=== PATIENT | female | born 2000 | race Caucasian/White ===

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

== ENCOUNTER 2021-03-08 15:08 | Emergency (ER) | payer OTHER, SELFPAY ==
[2021-03-08 15:09] VITALS: BP 102/64; PULSE 120; RESP 14; TEMP 37.8; O2SAT 100; BMI 31.2
--- NOTE | 2021-03-08 16:16 | EDS_ITS ---
HPI History of Present Illness Chief Complaint: Back Informant: patient Onset/Context/Timing Onset: Days Context: Gradual Onset Timing: Intermittent Current Severity: Mild Maximum Severity: Mild Narrative Narrative: 21-year-old female history of polycystic ovarian syndrome. No prior surgeries. Patient states that she went to an urgent care they were sent in the emergency department. States that she has had [id number] sensation in both lower extremities but no weakness or numbness. No bowel or bladder inco ntinence. Also states that she has had fever of 102 this morning and lower back pain. She denies dysuria but states she has had urinary frequency. She denies any cough or shortness of breath. She denies any abdominal pain, nausea, vomiting or diarrhea. Prior similar symptoms: No Recent Illness/Hospitalization: No PFSH PFS Medical History (Updated 03/08/21 @ 18:[address] Amarjit Cid MD) PCOS (polycystic ovarian syndrome) Home Medications cephalexin 500 mg PO Q6H 10 Days #40 cap 03/08/21 [Rx Last Taken Unknown] Allergy/AdvReac Type Severity Reaction Status Date / Time peanut Allergy Anaphylaxis Verified 03/08/21 15:13 Family History Father Cancer multiple myeloma Grandmother Breast cancer Grandfather Myocardial infarction Social History Smoking Status: Never smoker alcohol intake: never substance use type: does not use caffeine: Yes frequency: 5-6 times per week seatbelt use: always additional social history: [facility] at [facility] ROS ROS ED ROS Narrative Denies recent illness except for the fever today. Review of Systems ROS Unobtainable: Denies due to encephalopathy Constitutional Constitutional ED: Reports fever(s) Eyes Eyes: Denies change in vision ENT ENT ED: Denies ear pain or sore throat Cardiovascular Cardiovascular: Denies chest pain Respiratory/Chest Respiratory/Chest: Denies cough or dyspnea Gastrointestinal Gastrointestinal: Denies abdominal pain, diarrhea, nausea or vomiting Genitourinary Genitourinary ED: Reports urinary frequency; Denies dysuria or hematuria Musculoskeletal Musculoskeletal: Denies myalgias Integumentary Denies rash Neurologic Neurologic: Denies headache(s) Psychiatric Psychiatric: Denies depression Endocrine Endocrinology: Denies polyuria Allergic/Immunologic Allergic/Immunologic ED: Denies urticaria EXAM Physical Exam Narrative Exam Narrative: Young healthy female no acute distress. Vital signs stable she does have a temperature of 100. She does not look septic or toxic. HEENT exam normal. Lungs are clear. Heart regular rhythm with a tachycardia with a rate about 110 no murmur.. Abdomen soft nontender normal bowel sounds no peritoneal signs. Extremities moves all 4. Neurovascular intact 5-5 ladle liner helper strength. Dorsi plantar flexion intact equal symmetrical good strength in both lower extremities. No cauda equina. No saddle anesthesia. Can lift either leg without any difficulty. Back completely nontender spine nontender. No redness or warmth. No signs of trauma. Neurologic exam normal. Normal motor strength and sensation bilaterally. Const Vital Signs: 03/08/21 15:09 Temperature 100.0 F H Temperature Source Oral Pulse Rate 120 H Respiratory Rate 14 Blood Pressure 102/64 Blood Pressure Mean 76 Pulse Ox 100 Oxygen Delivery Method Room Air Positive well nourished and well developed General Appearance ED: well developed HEENT Reports moist mucous membranes Negative for trauma or tenderness Eyes PERRL and EOMs intact bilaterally Neck no lymphadenopathy, supple and no JVD General: Negative for tenderness Chest Wall inspection of chest normal and palpation of chest normal Resp normal respiratory effort and clear to auscultation bilaterally Cardio regular rhythm and no murmurs Rate: tachycardic GI normal to inspection, nondistended, normoactive bowel sounds, non-tender and no masses Inspection: Negative for abdominal distention Auscultation: normoactive bowel sounds Palpation: soft; Negative for tender, guarding or rebound tenderness present Back/Spine no CVA tenderness General Back: Negative for CVA tenderness Cervical Spine: Negative for cervical spine tenderness Thoracic Spine / Upper Back: Negative for thoracic spinal tenderness or paraspinal muscle tenderness Lumbar Spine / Lower Back: Negative for lumbar spinal tenderness Extremity normal to inspection General Extremety ED: Negative for edema or tenderness General Extremity: Negative for edema Neuro oriented x3 and CN's II-XII intact bilaterally Sensorium / Orientation: alert; Negative for orientation impaired, lethargic or stuporous Sensory Exam: No sensory level loss detected Motor Exam: strength 5/5 throughout; Negative for general weakness or strength abnormal Psych mental status grossly normal Skin no rashes or lesions noted and no wounds MDM MDM MDM Narrative Medical decision making narrative: Young female normal exam other than mild tachycardia and low-grade temperature of 100. Consider UTI versus viral syndrome versus atypical presentation of pneumonia. She has good motor strength and sensation and range of motion to all extremities. She will be treated with IV fluids and p.o. Tylenol. Labs are being obtained along with x-ray. Repeat exam patient is doing well at 6 PM. She is feeling much better. She was given 1 oral Keflex. And Tylenol. She and I discussed her lab test. I suspect she has pyelonephritis. Urine culture was sent. She is comfortable being treated as an outpatient. She does return if feeling worse. Lab Data Attestation: I reviewed the patient's lab results. Lab results narrative: CBC showed an elevated white count 23,000. Hemoglobin 13. Electrolytes sodium 132. Gap at 9 creatinine of 1. Glucose 94. Urine is consistent with a UTI with positive nitrites 25-50 white cells 1+ bacteria. A culture will be sent. Chest x-ray shows no acute abnormality. Normal cardiac silhouette no pneumonia. Read both by myself and the radiologist. Labs: Laboratory Results - last 24 hr 03/08/21 03/08/21 03/08/21 16:27 16:30 16:30 WBC 23.3 H RBC 4.06 L Hgb 13.1 Hct 40.0 MCV 98.5 MCH 32.3 H MCHC 32.8 RDW Std Deviation 47.0 H RDW Coeff of Candi 13.1 Plt Count 334 MPV 8.7 Immature Gran % (Auto) 0.600 Neut % (Auto) 77.9 H Lymph % (Auto) 9.4 L [place] % (Auto) 10.0 Eos % (Auto) 1.8 Baso % (Auto) 0.3 Absolute Neuts (auto) 18.5 H Absolute Lymphs (auto) 2.23 Nucleated RBC % 0 Differential Comment SCANNED Diff Path Review May foll Platelet Estimate ADEQUATE RBC Morphology NORM C+C Sodium 132 L Potassium 3.8 Chloride 99 Carbon Dioxide 24.0 Anion Gap 9 BUN 8 Creatinine 1.02 Estim Creat Clear Calc 91.18 Est GFR (MDRD) Af Amer 88 Est GFR (MDRD) Non-Af 73 BUN/Creatinine Ratio 7.8 L Glucose 94 Calcium 8.8 Urine Color Yellow Urine Clarity Clear Urine pH 7.0 Ur Specific [place] 1.005 Urine Protein 30 H Urine Glucose (UA) Normal Urine Ketones 50 H Urine Occult Blood 25 H Urine Nitrite Positive H Urine Bilirubin Negative Urine Urobilinogen Normal Ur Leukocyte Esterase 500 H Urine RBC 0-5 SEEN Urine WBC 25-50 SEEN Ur Squamous Epith Cells 0-5 SEEN Urine Bacteria 1+ Urine Mucus 0 SEEN Radiography Diagnostic Testing: Radiology Impression Chest X-Ray 03/08/21 16:40 IMPRESSION: Normal x-ray examination of the chest. Electronically Signed: Lola Singleton MD at 17:23 EDT Tel , Service support , Discharge Plan Triage Chief Complaint: Back ED Provider: Amarjit Cid Dx/Rx/DC Orders Clinical Impression: Acute pyelonephritis Instructions: ED Pyelonephritis, Female (Adult) Prescriptions: New cephalexin 500 mg capsule 500 mg PO Q6H 10 Days Qty: 40 RF: 0 Primary Care Provider: Jennifer Paul Referrals: Jennifer Paul MD [Primary Care Provider] - 3-5 Days Activity Restrictions/Additional Instructions: You have a urinary tract infection called pyelonephritis. This should be able to be handled by the antibiotic Keflex 4 times a day for 10 days. Plenty of fluids and rest. Tylenol and Motrin for fever and pain. Follow-up with your doctor to ensure you are getting better in 3 to 5 days. Return emergency department if you are feeling worse. Disposition Disposition: Home, self care
[2021-03-08 16:31] LABS: Mucous, Urine 0 SEEN /hpf (<or=2+)
[2021-03-08] MEDS: 0.9% Normal Saline 1,000 ML 1000 ML IV (16:35)
[2021-03-08] MEDS: Acetaminophen 500 MG Tablet 1000 MG PO (16:36)
[2021-03-08 16:40] LABS: Basophil% 0.3 % (0-1); Hemoglobin 13.1 g/dL (12.0-15.0); Mean Corp Hgb Conc 32.8 g/dL (32-36); Mean Corpuscular Hgb 32.3 pg (27.0-32.0); Mean Corpuscular Volume 98.5 fL (81-99); Mean Platelet Vol. 8.7 fl (6.2-12.0); NRBC Flagged by Analyzer 0 % (0-5); POSITIVE DIFFERENTIAL YES; POSITIVE MORPHOLOGY YES; Platelet Count 334 K/mm3 (150-450); RBC Distribution Width CV 13.1 % (11.6-14.6); Red Blood Count 4.06 M/mm3 (4.2-5.4); White Blood Count 23.3 K/mm3 (4.4-11.0)
--- NOTE | 2021-03-08 16:40 | RAD_ITS ---
STUDY: X-RAY CHEST REASON FOR EXAM: Female, 21 years old. fever TECHNIQUE: Frontal portable view of the chest COMPARISON: None. FINDINGS: The lungs are clear and expanded. There is no demonstrated pleural abnormality. Normal size heart. Normal mediastinum and wendy. Normal visualized pulmonary arteries. Normal visualized aortic arch and descending thoracic aorta. Normal visualized thoracic spine. Normal visualized ribs, clavicles, and shoulders. There is no demonstrated abnormality of the visualized soft tissue structures of the upper abdomen. RAD/Chest 1 View (Portable) IMPRESSION: Normal x-ray examination of the chest. Electronically Signed: Lola Singleton MD at 17:23 EDT Tel , Service support ,
[2021-03-08 16:41] LABS: Color, Urine Yellow (Yellow); Glucose, Dipstick Normal (Normal); Ketone-Dipstick 50 mg/dl (Negative); Leukocyte Esterase-Dipstick 500 /ul (Negative); Nitrite-Dipstick Positive (Negative); Occult Blood-Urine 25 /ul (Negative); Protein-Dipstick 30 mg/dl (Negative); Specific Gravity, Urine 1.005 (1.002-1.030); Urine Bilirubin Dipstick Negative (Negative); Urine Clarity Clear (Clear); Urine Urobilinogen Normal (Normal)
[2021-03-08 16:42] LABS: Differential Indicated SCAN CRITERIA MET
[2021-03-08 16:53] LABS: Anion Gap 9 (5-15); BUN 8 mg/dL (7-18); BUN/Creat Ratio 7.8 RATIO (10-20); Calcium,Total 8.8 mg/dL (8.5-10.1); Chloride 99 mmol/L (98-107); Creatinine, Serum 1.02 mg/dL (0.55-1.02); EST Glomerular Filtration Rate 73 mL/min (>60); Est Glom Filt Rate - Afr Amer 88 mL/min (>60); Estimated Creatinine Clearance 91.18 ml/min; Glucose 94 mg/dL (74-106); Potassium 3.8 mmol/L (3.5-5.1); Sodium Level 132 mmol/L (136-145)
[2021-03-08 17:01] LABS: Red Blood Cells-Urine 0-5 SEEN /hpf (0-5); Squamous Epithelial Cells - UA 0-5 SEEN /hpf (5-10); White Blood Cells 25-50 SEEN /hpf (0-5)
[2021-03-08 17:02] LABS: Bacteria 1+ /hpf (None Seen)
[2021-03-08 17:14] LABS: Eosinophils% 1.8 % (0-5); Lymphocyte % 9.4 % (19-41); Neutrophil % 77.9 % (47-70)
[2021-03-08 17:15] LABS: Absolute Lymphocyte Count 2.23 X10^3/uL (0.83-4.51); Absolute Neutrophil Count 18.5 X10^3/uL (2.0-7.7); Basophil# 0.06 X10^3/uL; Eosinophil# 0.43 X10^3/uL; Lymphocyte # 2.23 X10^3/ul (0.83-4.51); Monocyte# 2.38 X10^3/uL; Neutrophil # 18.52 X10^3/uL (2.7-7.7); Platelet Estimate ADEQUATE (ADEQ); Red Cell Morphology NORM C+C NORMAL (NORM C&C)
[2021-03-08 17:16] LABS: Differential Comment SCANNED
[2021-03-08] MEDS: Cephalexin 250 MG Capsule 500 MG PO (17:44)
[2021-03-08] MEDS: Ceftriaxone 1 GM/50 ML BAG IV (18:11)
--- NOTE | 2021-03-08 18:33 | ED.RN ---
RN Lolita Franco started IV rocephin as ordered. Then spoke with MD who had ordered PO keflex. order to stop IV antibiotics. awaiting pharmacy to fill prescription prior to dc.
[2021-03-08 18:38] VITALS: BP 98/62; PULSE 103; RESP 16; O2SAT 99
[2021-03-10 12:44] LABS: Pathologist Review Reviewed
== END 2021-03-08 18:43 | disposition home or self-care (01) ==
PROVIDERS: Emergency Provider Emergency Medicine; PCP Pediatrics
DX: N10 Acute pyelonephritis (principal); E28.2 Polycystic ovarian syndrome
CPT/HCPCS: 71045; 80048; 81001; 85025; 87077; 87086; 87088; 87186; 96361; 96374; 99285; J7030; A4216

== ENCOUNTER → 2021-06-17 08:37 | Outpatient (CLI) | payer OTHER, SELFPAY ==
[2021-06-17 10:33] LABS: AST(SGOT) 9 U/L (15-37); Alanine Aminotransfer ALT/SGPT 11 U/L (13-56); Albumin, Serum 3.4 g/dL (3.2-5.0); Alkaline Phosphatase 54 U/L (45-117); Bilirubin, Direct 0.17 mg/dL (0.00-0.30); Cholesterol 171 mg/dL (200); High Density Lipoprotein 46 mg/dL; Protein, Total 7.4 g/dL (6.4-8.2); Triglycerides 60 mg/dL; Very Low Density Lipoprotein 12 mg/dL (5-40)
[2021-06-17 10:35] LABS: hCG Titer Quant., Serum < 1 mIU/mL (1-3)
== END ==
PROVIDERS: PCP Pediatrics; Referring Provider Dermatology; Visit Provider Dermatology
DX: L70.0 Acne vulgaris (principal); Z79.899 Other long term (current) drug therapy
CPT/HCPCS: 36415; 80061; 80076; 84702